=== PATIENT | female | born 1965 | race Caucasian/White ===

== ENCOUNTER → 2024-04-22 14:36 | Outpatient (REF) | payer OTHER, SELFPAY | LOC: WDC 14:36 | PROVIDERS: ATTENDING PHYSICIAN Obstetrics & Gynecology; FAMILY PHYSICIAN Family Medicine | DX: Z12.31 Encounter for screening mammogram for malignant neoplasm of breast (principal) | CPT/HCPCS: 77063; 77067 ==

== ENCOUNTER → 2025-02-04 17:12 | Outpatient (REF) | payer BC, SELFPAY | LOC: RAD 17:12 | PROVIDERS: ATTENDING PHYSICIAN Nurse Practitioner Family; FAMILY PHYSICIAN Family Medicine | DX: M54.13 Radiculopathy, cervicothoracic region (principal) | CPT/HCPCS: 72100 ==